=== PATIENT | male | born 1990 | race Caucasian/White ===

== ENCOUNTER 2016-09-01 21:14 | Emergency (ER) | payer BC, OTHER ==
[~2016-09-01] VITALS: Ht 167.6 cm; Wt 77.1 kg
[2016-09-01] MEDS ORDERED: LIDOCAINE 1% MDV 20ML VIAL As Ordered ONE (23:44)
[2016-09-01] MEDS ORDERED: AZITHROMYCIN 250 MG TAB PO ONE (23:45)
[2016-09-01] MEDS ORDERED: cefTRIAXone SOD 500 MG VIAL (J0696) IM ONE (23:45)
[2016-09-02 00:12] VITALS: BP 135/82
== END 2016-09-02 00:13 | disposition home or self-care (01) ==
LOC: M ED 23:22
DX: N34.2 Other urethritis (principal)

== ENCOUNTER → 2016-11-18 | Outpatient (REF) | payer OTHER ==
[~2016-11-18] MED LIST: CIPR-249 PO; IBUP-1022 PO
[2016-11-18 19:01] LABS: ALBUMIN 4.5 GM/DL (3.2-5.2); ALBUMIN/GLOBULIN RATIO 1.61 (1.00-1.93); ALKALINE PHOSPHATASE 63 U/L (45-117); ALT/SGPT 17 U/L (12-78); ANION GAP 8 MEQ/L (8-16); AST/SGOT 11 U/L (15-37); BILIRUBIN,TOTAL 1.1 MG/DL (0.2-1.0); BLOOD UREA NITROGEN 7 MG/DL (7-18); CALCIUM LEVEL 9.4 MG/DL (8.5-10.1); CARBON DIOXIDE LEVEL 27 MEQ/L (21-32); CHLORIDE LEVEL 107 MEQ/L (98-107); CREATININE FOR GFR 1.19 MG/DL (0.70-1.30); GLOMERULAR FILTRATION RATE > 60.0 (>60); GLUCOSE, FASTING 95 MG/DL (70-105); POTASSIUM SERUM 4.4 MEQ/L (3.5-5.1); SODIUM LEVEL 142 MEQ/L (136-145); TOTAL PROTEIN 7.3 GM/DL (6.4-8.2)
== END ==
LOC: M LAB REF 12:07
PROVIDERS: ATTEND Family Medicine Addiction Medicine
DX: R42 Dizziness and giddiness (principal)

== ENCOUNTER 2016-11-19 06:20 | Emergency (ER) | payer OTHER ==
[~2016-11-19] VITALS: Ht 170.2 cm; Wt 73.0 kg
--- NOTE | 2016-11-19 07:58 | REP ---
SCROTAL SONOGRAPHY: HISTORY: Swelling and pain. Comparison study June 27, 2012. FINDINGS: Scanning demonstrates homogeneous testicular parenchyma bilaterally. Right testis measures 4.6 x 2.5 x 3.0 cm. Left testicular dimensions are 4.5 x 2.4 x 3.4 cm. Testicular Doppler flow is normal bilaterally. Resistive indices are measured by Doppler at 0.50 on the right and 0.38 on the left. There is no evidence of torsion. There is a small left-sided varicocele . Epididymides are unremarkable. IMPRESSION: Small left-sided varicocele . Otherwise normal scrotal sonography. No evidence of torsion. Signed by Juan F Arrieta MD 11/19/2016 08:04 A
[2016-11-19] MEDS ORDERED: CIPR-249 PO (08:08)
[2016-11-19] MEDS ORDERED: IBUP-1022 PO (08:08)
[2016-11-19 08:17] VITALS: BP 126/82
== END 2016-11-19 08:20 | disposition home or self-care (01) ==
LOC: M ED 06:20
DX: N43.3 Hydrocele, unspecified (principal); Z72.0 Tobacco use

== ENCOUNTER → 2016-12-02 | Outpatient (CLI) | payer OTHER | LOC: M WUC 16:40 | PROVIDERS: ATTEND Family Medicine Addiction Medicine | DX: Z20.2 Contact with and (suspected) exposure to infections with a predominantly sexual mode of transmission (principal) ==

== ENCOUNTER 2017-02-13 18:38 | Emergency (ER) | payer OTHER ==
[~2017-02-13] VITALS: Ht 170.2 cm; Wt 71.8 kg
[2017-02-13] MEDS ORDERED: VARE1TA PO (19:01)
--- NOTE | 2017-02-13 22:20 | REPUSA ---
Clinical history: left leg pain. Findings: The urinary bladder appears unremarkable, measuring 6.8 x 6.8 x 3.9 cm. No urinary bladder masses are seen. The right kidney measures 11.5 x 5.5 x 4.1 cm. The left kidney measures 13.1 x 5.4 x 4.5 cm. The kidneys demonstrate normal echotexture and echogenicity. There is no evidence of hydrone phrosis or nephrolithiasis. No renal masses are seen. No free fluid is appreciated. Impression: Unremarkable ultrasound examination of the kidneys.
[2017-02-13] MEDS ORDERED: IBUP-1022 PO (22:41)
[2017-02-13] MEDS ORDERED: CYCL10TA PO (22:41)
[2017-02-13 22:57] VITALS: BP 131/74
[2017-02-13] MEDS ORDERED: CYCLOBENZAPRINE 10 MG TAB PO ONE (23:00)
[2017-02-13] MEDS ORDERED: IBUPROFEN 800 MG TAB PO ONE (23:00)
== END 2017-02-13 22:59 | disposition home or self-care (01) ==
LOC: M ED 18:38
DX: M54.5 Low back pain (principal); F17.210 Nicotine dependence, cigarettes, uncomplicated; Z79.899 Other long term (current) drug therapy; Z88.0 Allergy status to penicillin

== ENCOUNTER 2017-03-15 20:51 | Emergency (ER) | payer OTHER ==
[~2017-03-15] VITALS: Ht 170.2 cm; Wt 69.1 kg
[~2017-03-15 20:51] MED LIST changes: +CYCL10TA PO; +VARE1TA PO
[2017-03-15 23:06] VITALS: BP 123/58
--- NOTE | 2017-03-16 01:39 | REP ---
Clinical: Swelling and trauma. Lateral pain. Technique: AP, lateral, bilateral oblique views of the right ankle. Findings: Moderate lateral swelling. No acute fracture dislocation. Joint spaces and ankle mortise are intact. Impression: Moderate lateral swelling. No acute fracture. Signed by Shaheed Aguilar MD 03/15/2017 10:31 P
== END 2017-03-15 23:08 | disposition home or self-care (01) ==
LOC: M ED 20:51
DX: S93.401A Sprain of unspecified ligament of right ankle, initial encounter (principal); X50.9XXA Other and unspecified overexertion or strenuous movements or postures, initial encounter; Y92.89 Other specified places as the place of occurrence of the external cause; Y93.89 Activity, other specified; Y99.8 Other external cause status; Z88.0 Allergy status to penicillin

== ENCOUNTER 2018-04-24 14:59 | Emergency (ER) | payer OTHER, SELFPAY ==
[~2018-04-24] VITALS: Ht 167.6 cm; Wt 68.2 kg
--- NOTE | 2018-04-24 16:00 | REP ---
Clinical: Pain with recent fall. Technique: AP, lateral, bilateral oblique and sunrise views right knee . Findings: The osseous structures and joint spaces are intact and normal. There is no evidence for acute fracture or dislocation. No joint effusion is appreciated. Surrounding soft tissues are unremarkable. No subcutaneous emphysema or radiodense foreign body. Impression: Normal examination. No acute fracture or dislocation. Electronically Signed by Shaheed Aguilar MD 04/24/2018 03:52 P
[2018-04-24 16:28] VITALS: BP 117/73
== END 2018-04-24 16:29 | disposition home or self-care (01) ==
LOC: M ED 14:59
DX: S80.01XA Contusion of right knee, initial encounter (principal); W01.198A Fall on same level from slipping, tripping and stumbling with subsequent striking against other object, initial encounter; Y92.410 Unspecified street and highway as the place of occurrence of the external cause; Z88.0 Allergy status to penicillin

== ENCOUNTER 2018-05-21 19:24 | Emergency (ER) | payer SELFPAY ==
[~2018-05-21] VITALS: Ht 167.6 cm; Wt 78.6 kg
[2018-05-21 19:24] VITALS: BP 140/85
[2018-05-21 20:43] LABS: INFLUENZA A AMPLIFICATION NEGATIVE (NEGATIVE); INFLUENZA B AMPLIFICATION NEGATIVE (NEGATIVE)
== END 2018-05-21 21:20 | disposition home or self-care (01) ==
LOC: M ED 19:24
DX: B34.9 Viral infection, unspecified (principal); J00 Acute nasopharyngitis [common cold]; Z20.828 Contact with and (suspected) exposure to other viral communicable diseases; Z88.0 Allergy status to penicillin

== ENCOUNTER 2019-02-06 17:25 | Emergency (ER) | payer SELFPAY ==
[~2019-02-06] VITALS: Ht 167.6 cm; Wt 77.4 kg
[2019-02-06] MEDS ORDERED: [UNRECOGNIZED DRUG - REMARK] (18:33)
[2019-02-06 18:35] LABS: HEMATOCRIT 42.8 % (42.0-52.0); MEAN CORPUSCULAR HEMOGLOBIN 31.4 pg (27.0-33.0); MEAN CORPUSCULAR VOLUME 89.7 fl (80.0-96.0); PLATELET COUNT, AUTOMATED 216 10^3/uL (150-450); RED BLOOD COUNT 4.77 10^6/uL (4.30-6.10); WHITE BLOOD COUNT 8.3 10^3/uL (4.0-10.0)
[2019-02-06 19:01] LABS: ERYTHROCYTE SEDIMENTATION RATE 5 mm/hr (0-15)
[2019-02-06 19:03] LABS: ALBUMIN 4.3 GM/DL (3.2-5.2); ALT/SGPT 21 U/L (12-78); BILIRUBIN,DIRECT < 0.1 MG/DL (0.0-0.2); BILIRUBIN,TOTAL 0.4 MG/DL (0.2-1.0); BLOOD UREA NITROGEN 12 MG/DL (7-18); CALCIUM LEVEL 9.3 MG/DL (8.5-10.1); CARBON DIOXIDE LEVEL 27 MEQ/L (21-32); CHLORIDE LEVEL 110 MEQ/L (98-107); CK-MB VALUE MASS 1.2 NG/ML (<3.6); CPK CREATINE PHOSPHOKINASE 141 U/L (39-308); GLOMERULAR FILTRATION RATE > 60.0 (>60); GLUCOSE, FASTING 97 MG/DL (70-100); MB/CK RELATIVE INDEX 0.85 (< OR =4); POTASSIUM SERUM 4.2 MEQ/L (3.5-5.1); SODIUM LEVEL 142 MEQ/L (136-145); TROPONIN I < 0.02 NG/ML (< 0.10)
[2019-02-06 19:47] VITALS: BP 135/87
[2019-02-06] MEDS ORDERED: IBUP80TA PO (20:40)
--- NOTE | 2019-02-07 06:54 | REP ---
Clinical: Chest pain . Comparison: 10/16/2014 . Technique: PA and lateral. Findings: The mediastinum and cardiac silhouette are normal. The lung burger are clear and without acute consolidation, effusion, or pneumothorax. The skeletal structures are intact and normal. Impression: 1. No acute cardiopulmonary process. Electronically Signed by Shaheed Aguilar MD 02/07/2019 06:46 A
--- NOTE | 2019-02-08 07:25 | ECGEPIP ---
[facility] - ED Test Date: 2019-02-06 Pat Name: MILLI BRANDT Department: Room: - Gender: Male [employer]icker: ct : 1990 Requested By: ADELE HEDRICK PA-C Order Number: [id number] Reading MD: Shailesh Garcia Measurements Intervals [place] Rate: 85 P: 59 CT: 96 QRS: 52 QRSD: 82 T: 40 QT: 323 QTc: 385 Interpretive Statements SINUS RHYTHM WITH SHORT CT INTERVAL Similar to tracing done 10-12-14 Electronically Signed on 02-08-2019 7:24:49 EST by Shailesh Garcia
== END 2019-02-06 21:06 | disposition home or self-care (01) ==
LOC: M ED 17:25
DX: M94.0 Chondrocostal junction syndrome [Tietze] (principal); Z88.0 Allergy status to penicillin; F17.200 Nicotine dependence, unspecified, uncomplicated

== ENCOUNTER 2019-05-20 21:41 | Emergency (ER) | payer OTHER, SELFPAY ==
[~2019-05-20] VITALS: Ht 167.6 cm; Wt 81.6 kg
[~2019-05-20 21:41] MED LIST changes: +IBUP80TA PO; +[UNRECOGNIZED DRUG - REMARK]
[2019-05-20] MEDS ORDERED: ACET1TAB55 PO (21:48)
[2019-05-21] MEDS ORDERED: NORC1TAB7 PO ×2 (00:38→00:39)
[2019-05-21] MEDS ORDERED: CLEO150C PO (00:38)
[2019-05-21] MEDS ORDERED: CLEO300C2 PO (00:38)
[2019-05-21 00:39] VITALS: BP 133/71
[2019-05-21] MEDS: CLINDAMYCIN 150 MG CAP PO ONE (00:39)
[2019-05-21] MEDS: NORCO 5/325MG TABLET (BULK FOR ED) PO ONE (00:39)
== END 2019-05-21 00:51 | disposition home or self-care (01) ==
LOC: M ED 21:41
DX: S02.5XXA Fracture of tooth (traumatic), initial encounter for closed fracture (principal); X50.9XXA Other and unspecified overexertion or strenuous movements or postures, initial encounter; Y92.89 Other specified places as the place of occurrence of the external cause; Y93.89 Activity, other specified; Y99.8 Other external cause status; K04.7 Periapical abscess without sinus; R59.9 Enlarged lymph nodes, unspecified; Z88.0 Allergy status to penicillin

== ENCOUNTER 2020-01-15 20:01 | Emergency (ER) | payer OTHER ==
[~2020-01-15] VITALS: Ht 170.2 cm; Wt 78.9 kg
[~2020-01-15 20:01] MED LIST changes: +ACET1TAB55 PO; +CLEO150C PO; +CLEO300C2 PO; +CYCL-707 PO; -CYCL10TA PO; +NORC1TAB7 PO
[2020-01-15 21:21] VITALS: BP 115/55
== END 2020-01-15 21:32 | disposition home or self-care (01) ==
LOC: M ED 20:01
DX: M23.92 Unspecified internal derangement of left knee (principal); F17.200 Nicotine dependence, unspecified, uncomplicated; Z88.0 Allergy status to penicillin

== ENCOUNTER → 2020-04-03 | Outpatient (CLI) | payer SELFPAY | LOC: M LABSMTC 10:58 | PROVIDERS: ATTEND Pediatrics | DX: Z20.822 Contact with and (suspected) exposure to COVID-19 (principal) ==

== ENCOUNTER 2023-08-16 09:43 | Emergency (ER) | payer OTHER, SELFPAY ==
[~2023-08-16] VITALS: Ht 170.2 cm; Wt 88.6 kg
[2023-08-16] MEDS: KETOROLAC TROMETHAMINE 10 MG TAB PO ONE (10:14)
[2023-08-16 10:59] LABS: BLOOD UREA NITROGEN 14 MG/DL (9-23); CALCIUM LEVEL 9.2 MG/DL (8.5-10.1); CARBON DIOXIDE LEVEL 27 MMOL/L (20-31); CHLORIDE LEVEL 104 MMOL/L (98-107); CREATININE FOR GFR 1.04 MG/DL (0.70-1.30); GLOMERULAR FILTRATION RATE > 60.0 (>60); GLUCOSE, FASTING 121 MG/DL (60-100); POTASSIUM SERUM 3.8 MMOL/L (3.5-5.1); SODIUM LEVEL 137 MMOL/L (136-145)
[2023-08-16] MEDS ORDERED: KETO10TAB PO (11:25)
[2023-08-16 11:34] VITALS: BP 137/92; TEMP 97.1; O2SAT 98
== END 2023-08-16 11:35 | disposition home or self-care (01) ==
LOC: M ED 09:43
DX: N20.0 Calculus of kidney (principal); Z88.0 Allergy status to penicillin; Z79.899 Other long term (current) drug therapy

== ENCOUNTER 2023-08-18 08:35 | Day surgery (SDC) | payer SELFPAY ==
[~2023-08-18] VITALS: Ht 170.2 cm; Wt 88.2 kg
[~2023-08-18 08:35] MED LIST changes: +KETO10TAB PO
[2023-08-18] MEDS: ONDANSETRON 4MG 2ML VIAL IV PRN ×2 (09:48→21:32)
[2023-08-18] MEDS: DICYCLOMINE 10 MG CAP PO ONE (09:48)
[2023-08-18] MEDS: MORPHINE 2 MG/ML 1ML VIAL IV ONE (09:49)
[2023-08-18] MEDS: NS 1,000 ML IV ONE (09:49)
[2023-08-18 09:55] LABS: BASO % 0.1 % (0.0-1.0); EOS % 0.5 % (0.0-3.0); HEMATOCRIT 42.2 % (42.0-52.0); HEMOGLOBIN 15.4 g/dl (13.5-17.5); LYMPH # 1.1 10^3/uL (1.5-5.0); LYMPH % 15.2 % (24.0-44.0); MEAN CORPUSCULAR HEMOGLOBIN 31.1 pg (27.0-33.0); MEAN CORPUSCULAR HGB CONC 36.5 g/dl (32.0-36.5); MEAN CORPUSCULAR VOLUME 85.3 fl (80.0-96.0); MONO # 0.3 10^3/uL (0.0-0.8); MONO % 3.4 % (2.0-8.0); NEUTROPHILS % 80.4 % (36.0-66.0); PLATELET COUNT, AUTOMATED 182 10^3/uL (150-450); RED BLOOD COUNT 4.95 10^6/uL (4.30-6.10); WHITE BLOOD COUNT 7.4 10^3/uL (4.0-10.0)
[2023-08-18] MEDS: MORPHINE 4 MG/ML 1ML VIAL IV ONE (10:22)
[2023-08-18] MEDS ORDERED: KETO10TAB PO (11:52)
[2023-08-18] MEDS ORDERED: HOME MED LIST COMPLETE! XX SCH (11:55)
[2023-08-18] MEDS: KETOROLAC 30 MG/ML 1ML VIAL IV ONE (12:35)
[2023-08-18] MEDS ORDERED: ceFAZolin 2 GM/D5W 50 ML IV BAG As Ordered ONE (16:40)
[2023-08-18] MEDS ORDERED: ceFAZolin SOD 2 GM in IV 1 EA IV ONE (16:45)
[2023-08-18] MEDS ORDERED: fentaNYL 100 MCG/2 ML INJECTION As Ordered ONE (19:51)
[2023-08-18] MEDS ORDERED: LIDOCAINE 2% 100MG/5ML SDV (FOR ANES.) As Ordered ONE (19:51)
[2023-08-18] MEDS ORDERED: ACETAMINOPHEN 1000MG 100ML IV BAG As Ordered ONE (19:51)
[2023-08-18] MEDS ORDERED: ONDANSETRON 4MG 2ML VIAL As Ordered ONE (19:51)
[2023-08-18] MEDS ORDERED: MIDAZOLAM INJ 2MG/2ML VIAL As Ordered ONE (19:51)
[2023-08-18] MEDS ORDERED: propofoL 200 MG/20 ML VIAL As Ordered ONE (19:51)
[2023-08-18] MEDS ORDERED: METOCLOPRAMIDE INJ 10MG/2ML VIAL As Ordered ONE (19:51)
[2023-08-18] MEDS: ISOVUE-300 61% 100ML VIAL As Ordered ONE (20:15)
[2023-08-18] MEDS ORDERED: oxyCODONE 5MG TAB PO PRN (20:55)
[2023-08-18] MEDS ORDERED: HYDROMORPHONE HCL 0.5 MG/ 0.5 ML SYRINGE IV PRN (20:55)
[2023-08-18] MEDS ORDERED: fentaNYL 100 MCG/2 ML INJECTION IV PRN (20:55)
[2023-08-18] MEDS ORDERED: LR 1,000 ML IV SCH (20:55)
[2023-08-18 22:00] VITALS: BP 131/76; TEMP 97.9; O2SAT 97
== END 2023-08-18 22:03 | disposition home or self-care (01) ==
LOC: M ED 08:35 → M OROP 15:54
PROVIDERS: ATTEND Urology
DX: N13.0 Hydronephrosis with ureteropelvic junction obstruction (principal); N20.0 Calculus of kidney; Z87.442 Personal history of urinary calculi; R10.32 Left lower quadrant pain; Z88.0 Allergy status to penicillin
CPT/HCPCS: 52356; 74176; 74420; 80047; 81001; 82365; 85025; 96374; 96375; 96376; 99284; C1769; C1894; C2617; J0131; J0690; J1100; J1885; J2250; J2405; J2765; J3010; Q9967

== ENCOUNTER → 2024-03-14 | Outpatient (CLI) | payer OTHER | LOC: M PLAIMG 10:48 | PROVIDERS: ATTEND Urology | DX: N20.0 Calculus of kidney (principal) ==

== ENCOUNTER → 2024-06-06 | Outpatient (REF) | payer OTHER ==
[2024-06-06 15:39] LABS: C REACTIVE PROTEIN QUANTITATIV < 0.50 MG/DL (<1.0)
[2024-06-06 15:40] LABS: ALBUMIN 4.5 G/DL (3.2-5.2); ALKALINE PHOSPHATASE 75 U/L (40-129); ALT/SGPT 39 U/L (7.0-40); AST/SGOT 23 U/L (<34); BASO % 0.2 % (0.0-1.0); BLOOD UREA NITROGEN 13 MG/DL (9-23); CALCIUM LEVEL 9.7 MG/DL (8.5-10.1); CARBON DIOXIDE LEVEL 29 MMOL/L (20-31); CHLORIDE LEVEL 106 MMOL/L (98-107); CHOLESTEROL LEVEL 158 MG/DL (<200); CHOLESTEROL RISK RATIO 4.41 (<5); EOS # 0.1 10^3/uL (0.0-0.5); EOS % 1.9 % (0.0-3.0); GLOMERULAR FILTRATION RATE > 60.0 (>60); GLUCOSE, FASTING 98 MG/DL (60-100); HDL CHOLESTEROL 35.8 MG/DL (>40); HEMATOCRIT 46.4 % (42.0-52.0); HEMOGLOBIN 16.4 g/dl (13.5-17.5); LDL CHOLESTEROL 96.2 MG/DL (<100); LYMPH # 1.6 10^3/uL (1.5-5.0); LYMPH % 30.5 % (24.0-44.0); MEAN CORPUSCULAR HEMOGLOBIN 30.8 pg (27.0-33.0); MEAN CORPUSCULAR HGB CONC 35.3 g/dl (32.0-36.5); MEAN CORPUSCULAR VOLUME 87.1 fl (80.0-96.0); MONO # 0.3 10^3/uL (0.0-0.8); MONO % 5.6 % (2.0-8.0); NEUTROPHILS # 3.3 10^3/uL (1.5-8.5); NEUTROPHILS % 61.4 % (36.0-66.0); NON-HDL-C 122.2 MG/DL; PLATELET COUNT, AUTOMATED 193 10^3/uL (150-450); POTASSIUM SERUM 4.6 MMOL/L (3.5-5.1); RED BLOOD COUNT 5.33 10^6/uL (4.30-6.10); SODIUM LEVEL 143 MMOL/L (136-145); TOTAL PROTEIN 7.6 G/DL (5.7-8.2); TRIGLYCERIDES LEVEL 130 MG/DL (<150); WHITE BLOOD COUNT 5.4 10^3/uL (4.0-10.0)
[2024-06-06 15:41] LABS: THYROID STIMULATING HORMONE 1.197 uIU/ML (0.55-4.78)
[2024-06-06 15:46] LABS: ERYTHROCYTE SEDIMENTATION RATE 1 mm/hr (0-15)
[2024-06-06 16:39] LABS: HEMOGLOBIN A1c 4.6 % (4.0-6.0)
== END ==
LOC: M LAB REF 14:51
PROVIDERS: ATTEND Nurse Practitioner Family
DX: R07.89 Other chest pain (principal); E66.3 Overweight; R53.83 Other fatigue; Z11.9 Encounter for screening for infectious and parasitic diseases, unspecified

== ENCOUNTER → 2024-06-07 | Outpatient (CLI) | payer OTHER | LOC: M EKG 09:54 | PROVIDERS: ATTEND Nurse Practitioner Family | DX: R07.89 Other chest pain (principal) ==

== ENCOUNTER → 2025-02-28 | Outpatient (REF) | payer OTHER ==
[~2025-02-28] MED LIST changes: -IBUP-1022 PO; +IBUP600T42 PO
[2025-02-28 14:18] LABS: MAGNESIUM LEVEL 2.2 MG/DL (1.8-2.4)
[2025-02-28 14:20] LABS: IRON (FE) 148.0 UG/DL (65-175)
== END ==
LOC: M LAB REF 12:31
PROVIDERS: ATTEND Nurse Practitioner Family
DX: R45.89 Other symptoms and signs involving emotional state (principal); R45.1 Restlessness and agitation